=== PATIENT | male | born 1935 | race Caucasian/White ===

== ENCOUNTER 2017-03-13 11:30 | Emergency (ER) | payer OTHER ==
[~2017-03-13] VITALS: Ht 182.9 cm; Wt 82.3 kg
[~2017-03-13 11:30] MED LIST: ASPI81 PO; CEPH500C3 PO; LORTA10 PO; SIMV20 PO; TERA1CAP3 PO
[2017-03-13 11:51] VITALS: BP 158/79; PULSE 63; RESP 16; TEMP 97.6; O2SAT 98
[2017-03-13] MEDS ORDERED: HTN MED (12:08)
[2017-03-13] MEDS ORDERED: [UNRECOGNIZED DRUG - REMARK] (12:08)
[2017-03-13] MEDS ORDERED: TETANUS/DIPHTHERIA TOXOID ADULT 0.5 ML VIAL IM ONE (12:45)
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
[2017-03-13] MEDS ORDERED: CEPH-460 PO (13:28)
== END 2017-03-13 13:53 | disposition home or self-care (01) ==
LOC: PHED 11:30
DX: S00.83XA Contusion of other part of head, initial encounter (principal); S50.811A Abrasion of right forearm, initial encounter; S50.311A Abrasion of right elbow, initial encounter; I10 Essential (primary) hypertension; E11.9 Type 2 diabetes mellitus without complications; V19.9XXA Pedal cyclist (driver) (passenger) injured in unspecified traffic accident, initial encounter; Z23 Encounter for immunization
CPT/HCPCS: 70140; 90471; 90714